=== PATIENT | male | born 1985 | race Caucasian/White ===

== ENCOUNTER 2024-10-19 13:55 | Emergency (ER) | payer SELFPAY ==
[2024-10-19 14:05] VITALS: BP 133/76; PULSE 91; RESP 16; TEMP 36.6; O2SAT 98
--- NOTE | 2024-10-19 14:33 | ED_ITS ---
HPI - General Adult General Chief complaint: Dental/Oral Stated complaint: FACIAL SWELLING Time Seen by Provider: 10/19/24 14:15 Source: patient, RN notes reviewed and old records reviewed Mode of arrival: ambulatory Limitations: no limitations History of Present Illness HPI narrative: 39 year old male who [facility] with complaints of swelling and tenderness to the right parotid gland region which started yesterday morning. Patient reports that he has no dental pain or any recent dental work. Patient reports that he has had a sour taste in his mouth for the past 2 weeks. Patient reports that he has history of ear problems and has ear tubes in his bilateral ears and concern swelling related to his ear. MD complaint: swelling of right side of face Onset (ago): day(s) (yesterday morning) Location: face (right parotid gland) Severity: moderate Quality: dull Treatments prior to arrival: none Related Data Home Medications ?Medication ?Instructions ?Recorded ?Confirmed ?Last Taken ?Type metformin 500 mg tablet,extended mg PO 10/19/24 Unknown History release 24 hr rosuvastatin 5 mg tablet mg 10/19/24 Unknown History Allergies Allergy/AdvReac Type Severity Reaction Status Date / Time No Known Allergies Allergy Mild Verified 10/19/24 14:13 Review of Systems Review of Systems: CONSTITUTIONAL: Denies malaise, chills, sweats, or fever. EYES: Denies visual changes, redness, or discharge. ENT: Reports no rhinorrhea, congestion, sinus pain, otalgia and no sore throat., has swelling and tenderness to right parotid gland CARDIOVASCULAR: Denies chest pain, palpitations, or edema. RESPIRATORY: Reports no cough.? Denies dyspnea. GASTROINTESTINAL: Denies abdominal pain, nausea, vomiting, diarrhea SKIN: Denies rash or itching. MUSCULOSKELETAL: Denies myalgia. NEUROLOGIC: Denies headache. All systems reviewed & are unremarkable except as noted in HPI and below PMFSH Past Medical History Medical History Hyperlipemia, mixed Diabetes Nasal fracture Ear infection Surgical History Surgical History History of placement of ear tubes Social History Social History Smoking status: Never smoker Alcohol intake: current Alcohol use details: social Substance use type: does not use Living arrangements: with family Gender identity (if verbalized by the patient): Male Comments At time of signature, agree with nursing past medical, surgical, social and family history. There is no relevant family history pertinent to the presenting complaint Exam Narrative: GENERAL: Well-appearing, well-nourished, and in no acute distress. HEAD: Normocephalic EYES: PERRLA, conjunctivae clear ENT: Nares clear, turbinates edematous and erythematous, clear discharge. Mucous membranes moist. TM pearly panchal with dull light reflex bilaterally;bilateral ear tubes in place with no drainage noted. no tragal tenderness. Oropharynx erythematous without lesions. Tonsils not enlarged and without exudate, no drooling, no hoarseness, no trismus, uvula midline.rounded raised swelling to right parotid gland with some tenderness on palpation, no trismus noted, No Aries angina NECK: Supple. No lymphadenopathy right parotid gland swelling CHEST: Clear to auscultation, breath sounds equal. No wheezing, rhonchi, rales, or stridor. No respiratory distress, speaks in full sentences.SAO2 98% on room air HEART: Regular rate and rhythm. No murmur heard. SKIN: Warm, dry, no rash. NEURO: Alert and oriented x3. PSYCH: Normal mood and affect Course Course Emergency Course: Patient is aware of diagnosis, understands and agrees to treatment plan.? Anticipatory guidance given.? Patient agrees to follow-up as directed and is aware of reasons to seek care at the emergency department. Portions of this record may have been created with voice recognition software Level of Care: Express Care Visit Vital Signs Vital signs: Vital Signs Temperature 36.6 C 10/19/24 14:05 Pulse Rate 91 10/19/24 14:05 Respiratory Rate 16 10/19/24 14:05 Blood Pressure 133/76 10/19/24 14:05 Pulse Oximetry 98 10/19/24 14:05 Temperature 36.6 C 10/19/24 14:05 Pulse Rate 91 10/19/24 14:05 Respiratory Rate 16 10/19/24 14:05 Blood Pressure 133/76 10/19/24 14:05 Pulse Oximetry 98 10/19/24 14:05 Reviewed Medical Decision Making Differential Diagnosis Differential Diagnosis: swelling right upper neck, Parotid gland swelling, parotiditis Medical Records Medical records reviewed: Yes I reviewed the external patient's medical records. Vital Signs Vital Signs: Vital Signs Temperature 36.6 C 10/19/24 14:05 Pulse Rate 91 10/19/24 14:05 Respiratory Rate 16 10/19/24 14:05 Blood Pressure 133/76 10/19/24 14:05 Pulse Oximetry 98 10/19/24 14:05 Temperature 36.6 C 10/19/24 14:05 Pulse Rate 91 10/19/24 14:05 Respiratory Rate 16 10/19/24 14:05 Blood Pressure 133/76 10/19/24 14:05 Pulse Oximetry 98 10/19/24 14:05 Critical Care Time Critical Care Time Critical Care Time: No Discharge Plan Discharge Clinical Impression: Enlarged parotid gland, Parotid gland pain Patient Disposition: Home Condition: Stable Instructions: Antibiotic Form, Parotid Duct Obstruction (ED) Additional Instructions: Increase fluids especially juices and water Tylenol or Ibuprofen for pain or fevers Ice to right side of face and posterior jaw area 20 minutes 4-6 times daily Steroids as directed--take with food Salt water gargles, throat lozenges or throat sprays as desired Antibiotic as directed--finished the medication If your symptoms persist, change or worsen significantly before you can contact your personal physician then please, without delay, go to the emergency department for further evaluation. Follow-up with PCP in 7-10 days or sooner if needed Follow up with PCP soon in regards to your blood pressure which is elevated above threshold for referral. Blood pressure above 120/80 may indicate pre- hypertension.133/76 suck on hard candy or lemon drops Patient Language: [place]i Prescriptions: New amoxicillin-pot clavulanate 875-125 mg tablet 1 tablet PO Q12H Qty: 20 0RF prednisone 20 mg tablet 40 mg PO BID 5 Days Qty: 20 0RF Rx Instructions: monitor glucose levels and maintain dietary restrictions No Action metformin 500 mg tablet extended release 24 hr PO rosuvastatin 5 mg tablet Follow-up/Referrals: Alex,Dante Lee MD [Primary Care Provider] - Stand Alone Forms: Work/School Release IP Time of Disposition: 14:45 Quality [place]ita Coma Scale Eyes: Open Verbal: Oriented and Alert Motor: Follows Commands [place] Coma Total Score: 15
== END 2024-10-19 15:00 | disposition home or self-care (01) ==
PROVIDERS: Emergency Provider Registered Nurse; PCP Family Medicine Sports Medicine
DX: K11.1 Hypertrophy of salivary gland (principal); K11.9 Disease of salivary gland, unspecified; E11.9 Type 2 diabetes mellitus without complications; E78.5 Hyperlipidemia, unspecified
CPT/HCPCS: 99203; G0463